=== PATIENT | female | born 1960 | race Two or more races ===

== ENCOUNTER 2018-03-16 09:07 | Day surgery (SDC) | payer OTHER ==
[2018-03-16] MEDS ORDERED: LIDOCAINE 4% SOLUTION 50 ML BTL (11:47)
[2018-03-16] MEDS ORDERED: FENTAnyl 50 MCG/ML VIAL (12:52)
[2018-03-16] MEDS ORDERED: MIDAZOLAM 1 MG/ML 2 ML INJ ×2 (12:53)
== END 2018-03-16 12:42 | disposition home or self-care (01) ==
LOC: GIL 09:07
DX: K21.0 Gastro-esophageal reflux disease with esophagitis (principal); K64.4 Residual hemorrhoidal skin tags; K29.70 Gastritis, unspecified, without bleeding
CPT/HCPCS: 43239; 88305; 88312; 88313